=== PATIENT | male | born 1985 | race Hispanic/Latino ===

== ENCOUNTER 2022-10-29 23:35 | Emergency (ER) | payer SELFPAY ==
--- NOTE | ~2022-10-29 | CT_ITS ---
EXAMINATION: CT abdomen pelvis w con DATE: 10/30/2022 01:23 INDICATION: Right lower quadrant abdominal pain. TECHNIQUE: Computed tomography (CT) of the abdomen and pelvis was performed with 100 mL Omnipaque 350 intravenous contrast. Automated exposure control and iterative reconstruction technique were employe d. The dose-length product was 402.49 mGy-cm. COMPARISON: None. FINDINGS: The visualized portions of the lung bases demonstrate mild atelectasis. No pleural effusion . The heart size is normal. No pericardial effusion. The liver, gallbladder, spleen, pancreas, and ad renal glands are normal. There is a 7 mm cyst in right kidney. Left kidney is normal. There are no di lated loops of bowel. The appendix is normal. There are no pathologically enlarged lymph nodes. There is no free intraperitoneal fluid. There is mild lumbar spondylosis. IMPRESSION: 1. No etiology for the patient's symptoms. Reviewed, dictated and finalized at location A. [facility]
--- NOTE | 2022-10-30 00:14 | ED.ABDPAIN ---
HPI - Abdominal Pain General Chief Complaint: Abdominal Pain Stated Complaint: abd pain, urinary retention Time Seen by Provider: 10/29/22 23:58 History of Present Illness HPI narrative: HPI obtained with professional translating services This is a 37-year-old male who denies past medical history, presenting to the emergency department complaining of abdominal pain and dysuria for the past day. The patient describes the pain as grabbing me rated 7 out of 10, and the right lower quadrant and substernally. There does not appear to be any aggravating or alleviating factors for the pain. He also complains of some dysuria without blood. Related Data Allergies Allergy/AdvReac Type Severity Reaction Status Date / Time No Known Allergies Allergy Verified 10/30/22 00:22 Review of Systems Review of Systems: CONSTITUTIONAL: Denies fever, chills, or sweats. EYES: Denies visual changes, redness, or discharge. ENT: Denies rhinorrhea, congestion, sore throat, or otalgia. CARDIOVASCULAR: Denies chest pain, palpitations, or edema. RESPIRATORY: Denies cough or dyspnea. GASTROINTESTINAL: Right lower quadrant abdominal pain, nausea denies vomiting, or diarrhea. GENITOURINARY: Dysuria denies hematuria. SKIN: Denies rash or itching. MUSCULOSKELETAL: Denies back pain, joint pain, or myalgia. NEUROLOGIC: Denies headache, numbness, dizziness, or weakness. PSYCHIATRIC: Denies anxiety or depression. [facility] Social History Social History (Updated 10/30/22 @ 05:16 by Rancho Monroe MD) Smoking status: Never smoker Alcohol intake: current Substance use: never Exam Narrative: GENERAL: Well-developed, well-nourished, and in no acute distress. HEAD: Normocephalic, atraumatic. EYES: PERRLA and EOMI. ENT: Nares clear, no rhinorrhea or epistaxis. Mucous membranes moist. Oropharynx without tonsillar hypertrophy exudate or other lesions. CHEST: Clear to auscultation. No respiratory distress. No wheezes rales or rhonchi HEART: Regular rate and rhythm. No murmur heard. Normal peripheral pulses. ABDOMEN: Soft, mild tenderness to palpation in the right lower quadrant without rebound, Rovsing sign positive, nondistended, normal active bowel sounds. No CVA tenderness to palpation EXTREMITIES: Normal range of motion. No edema. SKIN: Warm, dry, no rash. NEURO: No focal deficits. Alert and oriented x3. PSYCH: Normal mood and affect. Course Course Emergency Course: 03:59 - CBC unremarkable. Chemistries demonstrate very mild hypokalemia at 3.3 but are otherwise unremarkable. UA negative. Patient tested negative for influenza and COVID. My review of the CT abdomen is not concerning for acute process, however stat rad radiology read is delayed and pending. The patient states he continues to have pain and a sensation of fullness. Will give a GI cocktail and Toradol. 05:05 - Stat rad interpretation of the CT abdomen pelvis shows no acute findings in the abdomen or pelvis. Discussed findings with the patient. He states he feels roughly the same. Discussed return and emergent precautions including signs/symptoms of respiratory distress and acute abdomen. The patient understanding and is comfortable with plan. All questions answered to his satisfaction. Vital Signs Vital signs: Vital Signs Pulse Rate 65 10/30/22 00:35 Respiratory Rate 16 10/30/22 00:35 Blood Pressure 121/73 10/30/22 00:35 Pulse Oximetry 98 10/30/22 00:35 Pulse Rate 61 10/30/22 02:24 Respiratory Rate 14 10/30/22 02:24 Blood Pressure 109/66 10/30/22 02:56 Pulse Oximetry 100 10/30/22 02:24 MDM - Abdominal Pain MDM Narrative Medical decision making narrative: Plan: Labs, imaging, pain control, reassess Differential Diagnosis Differential diagnosis: Likely acute appendicitis, calculus of kidney, diverticulitis and other (UTI, metabolic abnormality, other) Lab Data 10/30/22 00:04 10/30/22 00:04 Labs: Lab Results
[2022-10-30] MEDS: SODIUM CHLORIDE 0.9% IV 1,000 ML 999 ML IV CONT (00:22)
[2022-10-30] MEDS: ONDANSETRON INJ 4 MG/2 ML VIAL IV PUSH (00:23)
[2022-10-30 00:28] LABS: Add Urine Microscopic? NO; Appearance Urine Clear (Clear); Basophils Percent Auto 0.5 % (0.2-1.2); Bilirubin Urine Negative (Negative); Blood Urine Negative (Negative); Color Urine Yellow (Yellow); Eosinophils Absolute Auto 0.3 K/mm3 (0-0.3); Glucose Urine UA Negative (Negative); Hematocrit 41.3 % (42.0-52.0); Hemoglobin 14.1 g/dL (14.0-18.0); Immature Granulocyte Absolute 0.02 K/mm3 (0.00-0.031); Immature Granulocyte Percent A 0.3 % (0-0.5); Ketones Urine Negative (Negative); Leukocyte Esterase Ur Negative LEU/UL (Negative); Lymphocytes Absolute Auto 3.23 K/mm3 (0.9-3.2); Lymphocytes Percent Auto 40.7 % (18.3-44.2); Mean Corpuscular HGB Conc 34.1 g/dl (32-36); Mean Corpuscular Hemoglobin 28.9 pg (26-34); Mean Corpuscular Volume 84.6 fl (80-100); Mean Platelet Volume 9.4 fl (7.4-10.4); Monocytes Absolute Auto 0.7 K/mm3 (0.1-0.6); Monocytes Percent Auto 8.6 % (2.6-8.5); Neutrophils Absolute Auto 3.6 K/mm3 (1.3-6.7); Neutrophils Percent Auto 45.9 % (45.5-73.1); Nitrate Urine Negative (Negative); Platelet Count Result 268 k/mm3 (150-375); Protein Urine Negative (Negative); Red Blood Count 4.88 M/mm3 (4.6-6.20); Red Cell Distribution Width 12.2 % (11.5-14.5); Specific Grav Ur 1.025 (1.001-1.035); Urobilinogen Urine 0.2 mg/dL (<2.0); White Blood Count 7.9 K/mm3 (4.5-10.0)
--- NOTE | 2022-10-30 00:34 | PC.NURSE ---
Assumed care of pt at this time, report taken from Lita KIM.
[2022-10-30 00:35] VITALS: BP 121/73; PULSE 65; RESP 16; O2SAT 98
[2022-10-30 00:35] LABS: RBC Urine 0-2 /hpf (0-2); WBC Urine 0-3 /hpf
[2022-10-30 00:40] LABS: Alanine Aminotransferase 38 U/L (6-50); Albumin Level 4.6 g/dL (3.5-5.1); Alkaline Phosphatase 97 U/L (38-126); Anion Gap 9 mmol/L (8-16); Aspartate Amino Transferase 33 U/L (17-59); Bilirubin,Total 0.5 mg/dL (0.2-1.3); Blood Urea Nitrogen 16 mg/dL (9-20); Calcium 8.5 mg/dL (8.4-10.2); Carbon Dioxide 26 mmol/L (22-30); Chloride 103 mmol/L (98-107); Estimated Glomerular Filt Rate > 60; Glucose 115 mg/dL (65-110); Lipase 198 U/L (23-300); Potassium 3.3 mmol/L (3.4-5.0); Sodium 138 mmol/L (137-145)
[2022-10-30 02:05] LABS: Influenza A QL RT-PCR Negative (Negative); Influenza B QL RT-PCR Negative (Negative); SARS-CoV-2 RNA PCR Negative
[2022-10-30 02:24] VITALS: PULSE 61; RESP 14; O2SAT 100
[2022-10-30 02:56] VITALS: BP 109/66
--- NOTE | 2022-10-30 03:50 | PC.NURSE ---
Nurse report received from Adriana KIM. Assumed care of pt at this time.
[2022-10-30] MEDS: KETOROLAC 30 MG/ML VIAL (*BKC) IV PUSH (04:05)
[2022-10-30] MEDS: BELLADONNA ALK/PHENOB ELIX 10 ML, MAG HYDROX/ALUMINUM HYD/SIMETH 30 ML, LIDOCAINE HCL 2... PO (04:08)
--- NOTE | 2022-10-30 04:15 | PC.NURSE ---
Medications administered and pt updated with use of [employer] interpretation device. No questions or concerns from pt at this time.
[2022-10-30 05:11] VITALS: BP 98/60; PULSE 53; RESP 16; O2SAT 98
== END 2022-10-30 05:24 | disposition home or self-care (01) ==
PROVIDERS: Emergency Provider Preventive Medicine Aerospace Medicine
DX: R10.31 Right lower quadrant pain (principal); Z20.822 Contact with and (suspected) exposure to COVID-19
CPT/HCPCS: 36415; 74177; 80053; 81003; 83690; 85025; 87636; 96365; 96375; 99284; A9270; J0131; J1885; J2405; J7030; Q9967